=== PATIENT | female | born 1960 | race Caucasian/White ===

== ENCOUNTER 2017-11-07 09:41 | Emergency (ER) | payer OTHER ==
[2017-11-07 09:55] VITALS: PULSE 74; RESP 18; O2SAT 99
[2017-11-07] MEDS ORDERED: Naproxen 550 mg Tab PO STA (10:20)
[2017-11-07] MEDS ORDERED: Naproxen 550 mg Tab PO ONE (10:31)
--- NOTE | 2017-11-07 10:36 | C.PDOC ---
History Of Present Illness 57-year-old female, presents to the emergency department with complaints of left lower back pain that is radiating to leg. Patient denies numbness/weakness , fever, chills, bladder/bowel incontinence, sensory/vascular deficit, or any other associated symptoms. No other complaints at this time. Time Seen by Provider: 11/07/17 09:56 Chief Complaint (Nursing): Back Pain History Per: Patient History/Exam Limitations: no limitations Current Symptoms Are (Timing): Still Present Past Medical History Reviewed: Historical Data, Nursing Documentation, Vital Signs Vital Signs: Last Vital Signs Temp 98.3 F 11/07/17 10:48 Pulse 74 11/07/17 10:48 Resp 18 11/07/17 10:48 BP 115/76 11/07/17 10:48 Pulse Ox 99 11/07/17 10:48 Surgical History: Family History: States: No Known Family Hx - Social History Hx Tobacco Use: No Hx Alcohol Use: Yes Hx Substance Use: No - Immunization History Hx Tetanus Toxoid Vaccination: Yes Hx Influenza Vaccination: No Hx Pneumococcal Vaccination: No Review Of Systems Constitutional: Negative for: Fever Gastrointestinal: Negative for: Nausea, Vomiting Genitourinary: Negative for: Incontinence Musculoskeletal: Positive for: Back Pain, Leg Pain Neurological: Negative for: Weakness, Numbness Physical Exam - Physical Exam Appears: Non-toxic, No Acute Distress Skin: Warm, Dry, No Rash Head: Atraumatic, Normacephalic Eye(s): bilateral: Normal Inspection, PERRL, EOMI Nose: Normal Oral Mucosa: Moist Lips: Normal Appearing Neck: Normal ROM Chest: Symmetrical Cardiovascular: Rhythm Regular, No Murmur Respiratory: Normal Breath Sounds, No Accessory Muscle Use Gastrointestinal/Abdominal: Soft, No Tenderness Back: Paraspinal Tenderness (right, lumbar) Extremity: Normal ROM, No Deformity Neurological/Psych: Oriented x3, Normal Speech ED Course And Treatment O2 Sat by Pulse Oximetry: 99 Pulse Ox Interpretation: Normal (RA) Progress Note: Pt treated with Naproxen, Prednisone and Flexeril. Disposition Counseled Patient/Family Regarding: Studies Performed, Diagnosis, Need For Followup, Rx Given - Disposition Referrals: [facility] [Outside] Disposition: HOME/ ROUTINE Disposition Time: 10:45 Condition: STABLE Additional Instructions: FOLLOW UP WITH YOUR DOCTOR IN 1-2 DAYS USE MEDICATIONS DIRECTED RETURN TO EMERGENCY ROOM IF SYMPTOMS WORSEN SEGUIMIENTO CON ALFREDO MDICO EN 1-2 FLORES USE MEDICAMENTOS SEGN LO INDICADO REGRESE AL MARIELA DE EMERGENCIA SI LOS SNTOMAS EMPEORAN Prescriptions: Cyclobenzaprine [Flexeril] 10 mg PO BID PRN #15 tab PRN Reason: Muscle Spasm Naproxen 375 mg PO BID PRN #20 tablet PRN Reason: pain predniSONE [predniSONE Tab] 40 mg PO DAILY #6 tab Instructions: Sciatica (DC) Forms: [employer] (Urdu) Print Language: ITALIAN - POA Present On Arrival: None - Clinical Impression Clinical Impression: Piriformis syndrome of left side, Sciatica - Scribe Statement The provider has reviewed the documentation as recorded by the Scribe (Jyothi Kerr) Provider Attestation: All medical record entries made by the Scribe were at my direction and personally dictated by me. I have reviewed the chart and agree that the record accurately reflects my personal performance of the history, physical exam, medical decision making, and the department course for this patient. I have also personally directed, reviewed, and agree with the discharge instructions and disposition.
[2017-11-07 10:48] VITALS: BP 115/76; TEMP 98.3
== END 2017-11-07 10:48 | disposition home or self-care (01) ==
LOC: C.ER 09:41
DX: M54.32 Sciatica, left side (principal)